=== PATIENT | male | born 1980 | race African-American/Black ===

== ENCOUNTER 2017-10-24 16:04 | Inpatient (IN) | payer OTHER ==
[2017-10-24 17:18] LABS: #Eosinphils 0.3 thou/uL (0.0-0.7); #Lymphocytes 1.3 thou/uL (1.20-3.40); #Monocytes 0.4 thou/uL (0.11-0.59); #Neutrophils 2.8 thou/uL (1.40-6.50); %Basophils 0.6 % (0.0-1.0); %Eosinophils 6.6 % (0.0-10.0); %Lymphocytes 26.7 % (21.0-51.0); %Monocytes 7.6 % (0.0-10.0); %Neutrophils 58.5 % (42.0-75.0); Hemoglobin 14.2 g/dL (14.0-18.0); Mean Corpuscular HGB CONC 34.1 g/dL (32.0-36.0); Mean Corpuscular Hemoglobin 34.7 pg (27.0-31.0); Mean Platelet Volume 8.8 fL (7.4-10.4); Platelet Count 223 thou/uL (130-400); RBC Distribution Width 10.5 % (11.5-14.5); Red Blood Cell (RBC) Count 4.11 mill/uL (4.70-6.10); White Blood Cell (WBC) Count 4.9 thou/uL (4.8-10.8)
[2017-10-24 17:35] LABS: ALT (SGPT) 14 U/L (8-55); AST (SGOT) 17 U/L (5-34); Albumin 4.2 g/dL (3.5-5.0); Alkaline Phosphatase 95 U/L (40-150); Anion Gap 13 mmol/L (10-20); BUN (Urea Nitrogen) 11 mg/dL (8.9-20.6); Bilirubin, Total 0.6 mg/dL (0.2-1.2); Calc. Creatinine Clearance 0 mL/min (70-130); Calcium 9.4 mg/dL (7.8-10.44); Carbon Dioxide 33 mmol/L (22-29); Chloride 101 mmol/L (98-107); Estimated GFR-MDRD Greater than 90; Globulin 4.2 g/dL (2.4-3.5); Glucose 91 mg/dL (70-105); Potassium 3.6 mmol/L (3.5-5.1); Protein, Total 8.4 g/dL (6.0-8.3); Sodium 143 mmol/L (136-145)
[2017-10-24 19:27] LABS: Bilirubin Negative (Negative); Blood, Urine Moderate (Negative); Clarity TURBID (Clear); Glucose, Urine (Dipstick) Negative (Negative); Leukocyte Large (Negative); Nitrite Positive (Negative); Protein, Urine (Dipstick) 100 mg/dL (Neg-Trace); Specific Gravity, Urine 1.016 (1.002-1.036)
[2017-10-24 19:29] LABS: Bacteria/HPF 4+ HPF (None Seen); Squamous Epithelial 0-3 HPF (0-3)
[2017-10-24 19:30] LABS: Pathc Cast-AUWi Flag 3.51 (0-2.49); Yeast-AUWi Flag 145.1 (0-25.0)
[2017-10-24 19:40] LABS: Hyaline Casts/LPF NONE SEEN LPF (0-3 Hyaline); Other Casts/LPF None Seen LPF (0-3 Hyaline); Yeast-All Forms None Seen HPF (None Seen)
[2017-10-24] MEDS ORDERED: Ondansetron HCl/PF 4 MG/2 ML Vial IVP PRN (21:19)
[2017-10-24] MEDS ORDERED: Ondansetron ODT 4 MG TAB SL PRN (21:19)
[2017-10-24] MEDS ORDERED: Sodium Chloride 0.9% 1,000 ML IV SCH (21:19)
[2017-10-24] MEDS ORDERED: Acetaminophen 325 MG TAB PO PRN (23:41)
[2017-10-25] MEDS: Sodium Chloride 0.9% 1,000 ML IV SCH ×3 (00:23→20:47)
[2017-10-25 04:49] LABS: #Basophils 0.1 thou/uL (0.0-0.2); #Eosinphils 0.3 thou/uL (0.0-0.7); #Lymphocytes 1.4 thou/uL (1.20-3.40); #Monocytes 0.5 thou/uL (0.11-0.59); #Neutrophils 2.1 thou/uL (1.40-6.50); %Basophils 1.6 % (0.0-1.0); %Eosinophils 7.8 % (0.0-10.0); %Lymphocytes 31.2 % (21.0-51.0); %Monocytes 11.6 % (0.0-10.0); %Neutrophils 47.8 % (42.0-75.0); Hemoglobin 11.6 g/dL (14.0-18.0); Mean Corpuscular HGB CONC 33.8 g/dL (32.0-36.0); Mean Corpuscular Hemoglobin 34.3 pg (27.0-31.0); Mean Platelet Volume 9.1 fL (7.4-10.4); Platelet Count 171 thou/uL (130-400); RBC Distribution Width 10.4 % (11.5-14.5); White Blood Cell (WBC) Count 4.4 thou/uL (4.8-10.8)
[2017-10-25 04:57] LABS: Anion Gap 7 mmol/L (10-20); BUN (Urea Nitrogen) 8 mg/dL (8.9-20.6); Calc. Creatinine Clearance 70 mL/min (70-130); Carbon Dioxide 31 mmol/L (22-29); Chloride 108 mmol/L (98-107); Estimated GFR-MDRD Greater than 90; Glucose 76 mg/dL (70-105); Potassium 3.7 mmol/L (3.5-5.1); Sodium 142 mmol/L (136-145)
--- NOTE | 2017-10-25 05:15 | HP-2 ---
DATE OF ADMISSION: 10/24/2017 CODE STATUS: FULL. PRIMARY CARE PHYSICIAN: Dr. Oconnell. ATTENDING: Dr. Lula Hills. RESIDENT: Dr. Rae. CHIEF COMPLAINT: Dysuria. HISTORY OF PRESENT ILLNESS: This is a 37-year-old male with past medical history of spina bifida, ne urogenic bladder, self-catheterization, then frequent UTIs, who presents with abdominal pain, back pa in, and fevers. The patient reports that on Friday his symptoms started with abdominal pain and back pain. He went to see his PCP and he added on Bactrim to his usual Cipro regimen for that he takes f or chronic UTI suppression. The patient reports that his symptoms have continued to get worse and th at he developed a fever to 103 yesterday and then also developed nausea and vomiting this morning. I n the ER, he was given Rocephin 1 gram. PAST MEDICAL HISTORY: 1. Spina bifida. 2. Neurogenic bladder. 3. Hypertension. 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 ALLERGIES: NITROFURANTOIN. MEDICATIONS: 1. Amitiza 24 mcg b.i.d. 2. Carvedilol 25 mg b.i.d. 3. Bactrim started on Friday 800-160 mg b.i.d. 4. Cipro 500 mg b.i.d. 5. Amlodipine 10 mg daily. FAMILY HISTORY: Mom has hypertension. SOCIAL HISTORY: Denies tobacco, alcohol, or drug use. REVIEW OF SYSTEMS: General: Positive for fever and chills. Eyes: Negative for vision changes or e ye pain. ENT: Negative for nasal congestion, rhinorrhea, sore throat. Respiratory: Negative for c ough, shortness of breath. Cardiovascular: Negative for chest pain, palpitations, edema. Gastroint estinal: Positive for nausea, vomiting, abdominal pain, suprapubic pain, and flank pain. Skin: Neg ative for rash or lesions. Genitourinary: Patient has cannot feel any dysuria and self caths. Musc uloskeletal: Positive for back pain or tenderness. Neurologic: Positive for chronic weakness and n umbness in the lower extremities. PHYSICAL EXAMINATION: VITAL SIGNS: Blood pressure 131/90, pulse 86, respiratory rate 20, temperature 98.7, pulse ox 96% on room air, current weight 31.6 kilograms. GENERAL: Alert, oriented x3, no acute distress. Thin, appropriately interactive. EYES: Extraocular muscles intact. Conjunctivae within normal limits. ENT: Nasal mucosa and oropharynx within normal limits. NECK: Supple, no lymphadenopathy. CARDIAC: Regular rate and rhythm. No murmurs, gallops. 2+ radial and pedal pulses. RESPIRATORY: Normal effort, no retraction. Chest is clear to auscultation bilaterally. SKIN: Warm, dry. No cyanosis or lesions. ABDOMEN: Soft, diffusely tender to palpation with voluntary guarding. No true CVA tenderness. He h as some mild back tenderness on the left flank. Normoactive bowel sounds. No mass or distention. EXTREMITIES: No cyanosis or edema. Significant lower extremity deformity. MUSCULOSKELETAL: Decreased muscle tone and musculoskeletal deformity in lower extremity. No muscle strength in lower extremity and decreased sensation in lower extremity. Normal sensation in the uppe r extremities. PSYCHIATRIC: Appropriate. LABORATORY DATA: WBC 4.9, hemoglobin 14.2, hematocrit 41.7, platelets 223. Sodium 143, potassium 3. 6, chloride 101, CO2 of 33, BUN 11, creatinine 0.73, glucose 91, calcium 9.4. AST 17, ALT 14, alkali ne phosphatase 95, total bilirubin 0.6, lactic acid 2.8, repeat lactic acid 1.0. Urinalysis showed m oderate blood, 100 protein, large leukocyte esterase, positive nitrites, 11-20 rbc's, greater than 50 wbc's, 4+ bacteria. ASSESSMENT AND PLAN: This is a 37-year-old male who presents with: 1. Complicated urinary tract infection, failed outpatient treatment. Outpatient urine culture that showed Escherichia coli sensitive to BACTRIM and ROCEPHIN, but resistant to Cipro. There is no signi ficant costovertebral angle tenderness. The patient does have fevers at home and continued abdominal pain. The patient straight caths himself 2-3 times a day. We will treat with Rocephin, normal sali ne at 100. We will monitor for signs and symptoms of sepsis or pyelo. We will check urine culture, b lood culture, and patient's chronic suppression will likely need to be changed as his last urinary tr act infections have been Escherichia coli resistant to Cipro. 2. Neurogenic bladder with frequent catheterization likely the cause of frequent infections. We ariana preciado p.r.n. in the hospital. 3. Spina bifida is likely causing neurogenic bladder. 4. Hypertension. Continue home medications. 5. Deep venous thrombosis prophylaxis. Lovenox. DISPOSITION: Admit to medical. Symptomatic medication will be provided. History and physical exam as well as management discussed with Dr. Hills.
--- NOTE | 2017-10-25 06:36 | PDOC.FM ---
- Subjective Subjective: Patient states he had a good night. He states most of his pain is in his low back area. He states he denies fevers or chills. He denies any pain with his catheterizations. He denies n/v/d, coughs, or lightheadedness. He states this all started about a week ago and the antibiotics didn't work. He had no other concerns this morning. - Objective Vital Signs & Weight: Vital Signs (12 hours) Temp Pulse Resp BP Pulse Ox 10/25/17 04:32 98.4 F 82 18 126/77 99 10/25/17 00:00 98.4 F 86 19 115/69 97 10/24/17 22:34 98.4 F 81 18 98 10/24/17 21:05 98.4 F 81 18 146/89 H 98 I&O: 10/23/17 10/24/17 10/25/17 06:59 06:59 06:59 Intake Total 1450 Balance 1450 Result Diagrams: 10/25/17 03:14 10/25/17 03:14 <Faizan Mcnulty - Last Filed: 10/25/17 07:27> - Objective Vital Signs & Weight: Vital Signs (12 hours) Temp Pulse Resp BP Pulse Ox 10/25/17 10:55 98.6 F 91 12 125/78 96 10/25/17 08:51 91 10/25/17 08:20 98.4 F 91 12 96 10/25/17 07:12 98.4 F 86 12 142/90 H 96 10/25/17 04:32 98.4 F 82 18 126/77 99 Weight Admit Weight 31.6 kg Weight 31.6 kg I&O: 10/24/17 10/25/17 10/26/17 06:59 06:59 06:59 Intake Total 1450 120 Balance 1450 120 Result Diagrams: 10/25/17 03:14 10/25/17 03:14 <Lula Hills - Last Filed: 10/25/17 14:00> Phys Exam - Physical Examination Constitutional: NAD HEENT: PERRLA, moist MMs Neck: no nodes Respiratory: no wheezing, clear to auscultation bilateral Cardiovascular: RRR, no significant murmur Gastrointestinal: soft, no distention, positive bowel sounds tenderness over suprapubic region significant deformity to lower extremity Neurological: non-focal Lymphatic: no nodes Psychiatric: normal affect, A&O x 3 Skin: no rash <Faizan Mcnulty - Last Filed: 10/25/17 07:27> Dx/Plan (1) Complicated UTI (urinary tract infection) Code(s): N39.0 - URINARY TRACT INFECTION, SITE NOT SPECIFIED Status: Acute (2) Spina bifida Code(s): Q05.9 - SPINA BIFIDA, UNSPECIFIED Status: Acute (3) Neurogenic bladder Code(s): N31.9 - NEUROMUSCULAR DYSFUNCTION OF BLADDER, UNSPECIFIED Status: Acute (4) HTN (hypertension) Code(s): I10 - ESSENTIAL (PRIMARY) HYPERTENSION Status: Acute - Plan Plan: 1. Complicated UTI - Failed outpatient treatment with Cipro - Continue Rocephin - Monitor for sepsis - Cultures pending 2. Spina bifida - long standing - likely cause of neurogenic bladder 3. Neurogenic bladder - Continue intermittent straight caths as needed - Likely cause of infection 4. HTN - Continue home meds Disposition: Stable, Continue current plan of care. <Faizan Mcnulty - Last Filed: 10/25/17 07:27> Attending Addendum - Attending Addendum I personally evaluated the patient and discussed the management with Dr. Mcnulty. I agree with the History, Examination, Assessment and Plan documented above with any addition or exceptions noted below. The patient is feeling better this morning. Will continue Rocephin. Urine culture pending. Pt will likely need his prophylactic antibiotic changed because past two uti's have been resistant to cipro. <Lula Hills - Last Filed: 10/25/17 14:00>
[2017-10-25] MEDS: Lubiprostone 24 MCG CAP PO SCH ×2 (08:51→18:21)
[2017-10-25] MEDS: Carvedilol 25 MG TAB PO SCH ×2 (08:51→18:21)
[2017-10-25] MEDS: Amlodipine 10 MG TAB PO SCH (08:51)
[2017-10-25] MEDS: Enoxaparin Sodium 40 MG/0.4 ML SYRINGE SC SCH (08:51)
[2017-10-25] MEDS ORDERED: cefTRIAXone\\ROCEPHIN 1 GM in Syringe 10 ML SLOW IVP SCH (20:00)
[2017-10-25] MEDS ORDERED: Carvedilol 25 MG TAB PO SCH (21:00)
--- NOTE | 2017-10-26 00:35 | HP ---
DATE OF SERVICE: 10/25/2017 CHIEF COMPLAINT: Dysuria. HISTORY OF PRESENT ILLNESS: The patient is a 37-year-old male with past medical history of spina bif yassine, neurogenic bladder, who self-catheterizes and frequent urinary tract infections, who presented w ith abdominal pain, back pain, and fevers. The patient had seen his PCP and was started on Bactrim i n addition to his normal Cipro that he takes for antibiotic prophylaxis. The patient endorses a feve r up to 103 and also noted some nausea and vomiting as well as lower back pain. In the ER, he was gi cydney 1 gram of Rocephin and admitted to a medical bed. This morning, the patient is feeling a little bit better, but he still notes some lower back pain. He has no CVA tenderness on the exam, but he di d have suprapubic tenderness this morning. PERTINENT LABORATORY: Shows a CBC with white blood cell count 4.4, hemoglobin 11.6, hematocrit 34.5, platelet count 171. Urinalysis showing protein 100, blood moderate, nitrate positive, leukocyte est erase large, urobilinogen 4.0, red blood cells 11-20, white blood cells greater than 50, bacteria 4+. ASSESSMENT AND PLAN: 1. Complicated urinary tract infection which failed outpatient treatment. The patient will continue on Rocephin. Urine cultures have been sent. The patient chronically takes Cipro for prophylaxis; bong faust, based on the clinic records, his previous 2 urinary tract infections were resistant to Cipro, so it is likely that his prophylaxis needed to change. 2. Neurogenic bladder: Patient will continue to catheterization intermittently. 3. Spina bifida. 4. Hypertension. 5. Please see Dr. Keila Rae's dictation for full history and physical, assessment and plan on this patient. I repeat the pertinent portions of the history and physical and agree with her documentati on. We have discussed this case in detail.
[2017-10-26] MEDS: Sodium Chloride 0.9% 1,000 ML IV SCH (03:19)
[2017-10-26 04:19] LABS: #Eosinphils 0.3 thou/uL (0.0-0.7); #Lymphocytes 1.5 thou/uL (1.20-3.40); #Monocytes 0.5 thou/uL (0.11-0.59); #Neutrophils 2.3 thou/uL (1.40-6.50); %Basophils 0.9 % (0.0-1.0); %Eosinophils 7.3 % (0.0-10.0); %Lymphocytes 30.9 % (21.0-51.0); %Monocytes 11.2 % (0.0-10.0); %Neutrophils 49.7 % (42.0-75.0); Hemoglobin 12.7 g/dL (14.0-18.0); Mean Corpuscular HGB CONC 34.2 g/dL (32.0-36.0); Mean Corpuscular Hemoglobin 34.2 pg (27.0-31.0); Mean Platelet Volume 8.8 fL (7.4-10.4); Platelet Count 195 thou/uL (130-400); RBC Distribution Width 10.4 % (11.5-14.5); Red Blood Cell (RBC) Count 3.72 mill/uL (4.70-6.10); White Blood Cell (WBC) Count 4.7 thou/uL (4.8-10.8)
[2017-10-26 04:31] LABS: Anion Gap 11 mmol/L (10-20); BUN (Urea Nitrogen) 6 mg/dL (8.9-20.6); Calc. Creatinine Clearance 70 mL/min (70-130); Calcium 8.5 mg/dL (7.8-10.44); Carbon Dioxide 29 mmol/L (22-29); Chloride 103 mmol/L (98-107); Estimated GFR-MDRD Greater than 90; Glucose 61 mg/dL (70-105); Potassium 3.6 mmol/L (3.5-5.1); Sodium 139 mmol/L (136-145)
--- NOTE | 2017-10-26 06:49 | PDOC.FM ---
- Subjective Subjective: Patient states he had a good night. He states the back pain and suprapubic pain has resolved. He states that he has had no chest pain, sob, n/v/d, fevers, or chills. He has no other concerns this morning. - Objective Vital Signs & Weight: Vital Signs (12 hours) Temp Pulse Resp BP Pulse Ox 10/26/17 04:38 98.4 F 83 16 102/66 92 L 10/25/17 23:28 98.4 F 85 18 124/77 99 10/25/17 20:01 98.3 F 84 16 96 10/25/17 20:00 98.3 F 84 16 137/80 98 Weight Admit Weight 31.6 kg Weight 31.6 kg I&O: 10/24/17 10/25/17 10/26/17 06:59 06:59 06:59 Intake Total 1450 3850 Balance 1450 3850 Result Diagrams: 10/26/17 03:30 10/26/17 03:30 <Faizan Mcnulty - Last Filed: 10/26/17 07:36> - Objective Vital Signs & Weight: Vital Signs (12 hours) Temp Pulse Resp BP BP Pulse Ox 10/26/17 12:35 98.1 F 83 16 145/84 H 99 10/26/17 08:29 98.3 F 84 16 137/81 98 10/26/17 08:10 98.3 F 84 16 98 10/26/17 08:07 82 137/81 10/26/17 04:38 98.4 F 83 16 102/66 92 L Weight Admit Weight 31.6 kg Weight 31.6 kg I&O: 10/25/17 10/26/17 10/27/17 06:59 06:59 06:59 Intake Total 1450 3850 Balance 1450 3850 Result Diagrams: 10/26/17 03:30 10/26/17 03:30 <Lula Hills - Last Filed: 10/26/17 14:03> Phys Exam - Physical Examination Constitutional: NAD HEENT: PERRLA Neck: no nodes Respiratory: no wheezing, clear to auscultation bilateral Cardiovascular: RRR, no significant murmur Gastrointestinal: soft, non-tender, no distention, positive bowel sounds significant lower extremity deformity Neurological: non-focal Lymphatic: no nodes Psychiatric: normal affect, A&O x 3 Skin: no rash <Faizan Mcnulty - Last Filed: 10/26/17 07:36> Dx/Plan (1) Complicated UTI (urinary tract infection) Code(s): N39.0 - URINARY TRACT INFECTION, SITE NOT SPECIFIED Status: Acute (2) Spina bifida Code(s): Q05.9 - SPINA BIFIDA, UNSPECIFIED Status: Acute (3) Neurogenic bladder Code(s): N31.9 - NEUROMUSCULAR DYSFUNCTION OF BLADDER, UNSPECIFIED Status: Acute (4) HTN (hypertension) Code(s): I10 - ESSENTIAL (PRIMARY) HYPERTENSION Status: Acute - Plan Plan: 1. Complicated UTI - Failed outpatient treatment with Cipro - Continue Rocephin - Monitor for sepsis - Cultures pending - Will change suppression medication to Bactrim per sensitivities 2. Spina bifida - long standing - likely cause of neurogenic bladder 3. Neurogenic bladder - Continue intermittent straight caths as needed - Likely cause of infection 4. HTN - Continue home meds Disposition: Stable, Continue current plan of care and await cultures. <Faizan Mcnulty - Last Filed: 10/26/17 07:36> Attending Addendum - Attending Addendum I personally evaluated the patient and discussed the management with Dr. Mcnulty. I agree with the History, Examination, Assessment and Plan documented above with any addition or exceptions noted below. The patient is feeling much better. BAck an suprapubic pain have resolved. Will transition to po bactrim and d/c home. <Lula Hills - Last Filed: 10/26/17 14:03>
[2017-10-26] MEDS: Enoxaparin Sodium 40 MG/0.4 ML SYRINGE SC SCH (08:06)
[2017-10-26] MEDS: Carvedilol 25 MG TAB PO SCH (08:07)
[2017-10-26] MEDS: Amlodipine 10 MG TAB PO SCH (08:07)
[2017-10-26] MEDS: Lubiprostone 24 MCG CAP PO SCH (08:07)
[2017-10-26 12:36] VITALS: BP 145/84; TEMP 98.1
--- NOTE | 2017-10-27 13:24 | DIS-2 ---
DATE OF ADMISSION: 10/24/2017 DATE OF DISCHARGE: 10/26/2017 RESIDENT: Dr. Faizan Mcnulty ADMITTING ATTENDING: Dr. Lula Hills. DISCHARGE ATTENDING: Dr. Lula Hills CONSULTATIONS: None. PROCEDURES: None. PRIMARY DIAGNOSES: 1. Complicated urinary tract infection. 2. Spina bifida. 3. Neurogenic bladder. 4. Hypertension. DISCHARGE MEDICATIONS: 1. Amitiza 24 mcg b.i.d. with meals. 2. Amlodipine 10 mg p.o. daily. 3. Carvedilol 25 mg p.o. at bedtime. 4. Bactrim double strength 1 tab b.i.d. for 5 days. 5. Bactrim single strength 1 tab daily for 30 days. DISCONTINUED MEDICATIONS: Ciprofloxacin 500 mg. HISTORY OF PRESENT ILLNESS AND HOSPITAL COURSE: This is a 37-year-old male with past medical history of spina bifida, neurogenic bladder, self catheterization and frequent UTIs who presents with abdomi nal pain, back pain, fevers. The patient reports that on Friday symptoms started with abdominal pain and back pain. He went to see his PCP and he added Bactrim to his usual Cipro regimen for what he t akes for chronic urinary tract infection suppression. The patient reports that his symptoms have con tinued to get worse and he developed a fever to 103 yesterday and then he also developed nausea and v omiting this morning. In the ER, he was given Rocephin 1 gram. During this hospitalization, the patient had some notable lab values, he had a white blood cell count that ranged from 4.9 to 4.4, hemoglobin that ranged from 14.2 to 11.6. A urinalysis that showed 100 urine protein, moderate amount of urine blood, positive urine nitrites, large amount of leukocyte es terase, 11-20 urine RBCs, greater than 50, too numerous to count white blood cells and 4+ urine bacte joseph. The patient also had a urine culture that was drawn that showed E. coli positive. Sensitivitie s were drawn to that and showed that the organism was resistant to ciprofloxacin and that Bactrim as well as Rocephin was sensitive. The patient otherwise had negative blood cultures. The patient did complain of initially some continued back pain and suprapubic pain that resolved and improved during his hospitalization. The patient was afebrile during his hospitalization with normotensive blood pre ssures and other vital signs within normal limits. The abdominal pain and back pain improved on seco day of hospitalization and at that time it was decided that his chronic urinary tract infection caban ppression therapy need to be changed to Bactrim with close follow up with his PCP. Otherwise, the mirtha ellsworth had no other complications during this hospitalization and was discharged in appropriate condit ion. DISCHARGE INSTRUCTIONS: 1. Location: He will be discharged home into his own care. 2. Diet: Diet will be heart healthy diet with no restrictions. 3. Activity: Activity will be activity as tolerated. No restrictions. 4. Followup: Follow up will be with his primary care physician AT [facility] in 3 days to ensure that he is able to tolerate his new chronic urinary tract infection suppression going forward . I wish this alyce the best of luck and hope he has no further complications from this condition.
== END 2017-10-26 15:01 | disposition home or self-care (01) | DRG 699 ==
LOC: ERS 16:04 → SURG A 20:13
PROVIDERS: ADMIT Family Medicine; ATTEND Family Medicine
DX: T83.518A Infection and inflammatory reaction due to other urinary catheter, initial encounter (principal); N39.0 Urinary tract infection, site not specified; N31.9 Neuromuscular dysfunction of bladder, unspecified; Q05.9 Spina bifida, unspecified; I10 Essential (primary) hypertension; Y73.1 Therapeutic (nonsurgical) and rehabilitative gastroenterology and urology devices associated with adverse incidents; B96.20 Unspecified Escherichia coli [E. coli] as the cause of diseases classified elsewhere; K59.00 Constipation, unspecified
CPT/HCPCS: 36415; 51701; 80048; 80053; 81003; 81015; 83605; 85025; 87040; 87077; 87086; 87186; 96361; 96374; A4216; J0696; J1650

== ENCOUNTER 2018-03-10 07:07 | Day surgery (SDC) | payer OTHER ==
[2018-03-09 12:09] VITALS: BMI 19.5
--- NOTE | 2018-03-10 10:09 | OP ---
DATE OF PROCEDURE: 03/10/2018 SURGEON: Jorge Marin M.D. PROCEDURE: Aborted colonoscopy. PREOPERATIVE DIAGNOSES: History of transverse colon polyp removed in 2010. This polyp was incomplet shanthi retrieved; however, the pathology of the tissue that was retrieved suggested hyperplastic polyp. Followup colonoscopy was attempted today. OPERATIVE NOTE: Informed consent was obtained from the patient. He was sedated with total intraveno us anesthesia. Rectal exam was performed that was normal. The colonoscope was advanced to the dista l sigmoid. There was a large amount of solid stool in the distal colon. The procedure was aborted. IMPRESSION: Large amount of solid stool in the distal colon, procedure aborted. RECOMMENDATIONS: Follow up in GI Clinic.
[2018-03-10] MEDS ORDERED: Lidocaine 1% PF 5 ML VIAL ONE (13:18)
[2018-03-10] MEDS ORDERED: PROPOFOL 200 MG/20 ML VIAL ONE (13:18)
== END 2018-03-10 10:30 | disposition home or self-care (01) ==
LOC: SDC 07:07
PROVIDERS: ATTEND Internal Medicine Gastroenterology
PROC: 0DJD8ZZ Inspection of Lower Intestinal Tract, Via Natural or Artificial Opening Endoscopic (ICD-10-PCS; principal; 2018-03-10)
DX: K59.01 Slow transit constipation (principal); I10 Essential (primary) hypertension; Z86.010 Personal history of colon polyps; Z79.899 Other long term (current) drug therapy; Z88.8 Allergy status to other drugs, medicaments and biological substances
CPT/HCPCS: J2001; J2704

== ENCOUNTER 2018-03-23 12:39 | Outpatient (CLI) | payer OTHER ==
--- NOTE | 2018-03-23 15:04 | ULT ---
RENAL ARTERIAL DOPPLER ULTRASOUND: DATE: 03/23/18. COMPARISON: None. HISTORY: A 27-year-old male with high blood pressure, evaluate for renal artery stenosis. TECHNIQUE: Multiplanar, [place] scale, sonographic imaging of the kidneys and urinary bladder obtained. Renal vasc ulature is assessed with color flow and spectral analysis. FINDINGS: Secondary to patient body habitus, evaluation of the arterial structures of both kidneys is limited t echnically. The right kidney measures approximately 7.0 x 3.2 x 3.8 cm, abnormally small. Arcuate r enal artery resistive index on the right is estimated at 0.9-1.0, elevated. Imaging of right renal v ein demonstrates patency. Provided imaging of the right renal artery demonstrates a peak systolic ve locity of approximately 48 cm/s. Abdominal aorta in this region demonstrates a peak systolic velocit y of approximately 3 cm/s. Left kidney is vaguely visualized measuring in the 7.1 x 5.7 x 4.1 cm ran ge. Resistive indices of the left kidney measure between 0.6 and 0.8. Left renal vein appears paten t. Left renal artery demonstrates peak systolic velocity measuring up to 33 cm/s. The urinary bladder appears grossly unremarkable. No discrete renal mass, hydronephrosis, or stone. Renal artery to aortic ratio is 1.1 on the right and 0.8 on the left. This does not suggest renal a rtery stenosis, although portions of the renal arteries are incompletely visualized. IMPRESSION: Limited examination demonstrating no obvious evidence for renal artery stenosis. Of note, both kidne ys are difficult to visualize and are small. This may signify renal medical disease. POS: HOLDEN
== END 2018-03-23 12:40 | disposition home or self-care (01) ==
LOC: ULT 12:39
PROVIDERS: ATTEND Family Medicine
DX: I10 Essential (primary) hypertension (principal)
CPT/HCPCS: 76700; 76770

== ENCOUNTER 2019-02-12 10:56 | Emergency (ER) | payer OTHER ==
[2019-02-12 11:32] LABS: #Basophils 0.1 thou/uL (0.0-0.2); #Eosinphils 0.4 thou/uL (0.0-0.7); #Lymphocytes 1.2 thou/uL (1.20-3.40); #Monocytes 0.4 thou/uL (0.11-0.59); #Neutrophils 2.7 thou/uL (1.40-6.50); %Basophils 1.6 % (0.0-1.0); %Eosinophils 8.3 % (0.0-10.0); %Lymphocytes 24.3 % (21.0-51.0); %Monocytes 9.2 % (0.0-10.0); %Neutrophils 56.7 % (42.0-75.0); Hemoglobin 13.8 g/dL (14.0-18.0); Mean Corpuscular HGB CONC 33.7 g/dL (32.0-36.0); Mean Corpuscular Hemoglobin 33.3 pg (27.0-31.0); Mean Corpuscular Volume 98.8 fL (78.0-98.0); Mean Platelet Volume 8.6 fL (7.4-10.4); Platelet Count 187 thou/uL (130-400); RBC Distribution Width 10.5 % (11.5-14.5); Red Blood Cell (RBC) Count 4.16 mill/uL (4.70-6.10); White Blood Cell (WBC) Count 4.7 thou/uL (4.8-10.8)
--- NOTE | 2019-02-12 11:32 | RAD ---
XR Chest 1 View Portable HISTORY: Hypertension COMPARISON: 06/04/2017 FINDINGS: The heart size is normal. The lungs are well expanded without focal areas of consolidation, pneumothorax or pleural effusions. Marked deformity of the spine and rib cage is again seen. IMPRESSION: No radiographic evidence of acute cardiopulmonary process.
--- NOTE | 2019-02-12 11:49 | CT ---
CT BRAIN WITHOUT CONTRAST HISTORY: headache, hypertension, vision changes. COMPARISON: 07/17/2016 FINDINGS: The right-sided posterior ventriculostomy catheter is again seen with decompression of the right late ral ventricle. The ventricular sizes are stable. No evidence of acute infarct, hemorrhage, midline shift or abnormal extra-axial fluid collections is seen. The bony calvarium is intact. There is mucos al disease in the paranasal sinuses. IMPRESSION:: No CT evidence of acute intracranial process
[2019-02-12 11:53] LABS: ALT (SGPT) 9 U/L (8-55); AST (SGOT) 14 U/L (5-34); Albumin 4.1 g/dL (3.5-5.0); Alkaline Phosphatase 83 U/L (40-150); Anion Gap 11 mmol/L (10-20); BUN (Urea Nitrogen) 12 mg/dL (8.9-20.6); Bilirubin, Total 0.6 mg/dL (0.2-1.2); Calc. Creatinine Clearance 0 mL/min (70-130); Calcium 9.4 mg/dL (7.8-10.44); Carbon Dioxide 34 mmol/L (22-29); Chloride 102 mmol/L (98-107); Estimated GFR-MDRD Greater than 90; Globulin 3.5 g/dL (2.4-3.5); Glucose 82 mg/dL (70-105); Potassium 3.6 mmol/L (3.5-5.1); Protein, Total 7.6 g/dL (6.0-8.3); Sodium 143 mmol/L (136-145)
[2019-02-12 12:38] LABS: Bilirubin Negative (Negative); Blood, Urine Small (Negative); Clarity CLEAR (Clear); Glucose, Urine (Dipstick) Negative (Negative); Leukocyte Large (Negative); Nitrite Negative (Negative); Protein, Urine (Dipstick) Trace mg/dL (Neg-Trace); Specific Gravity, Urine 1.012 (1.002-1.036); pH, Urine 7.5 (5.0-9.0)
[2019-02-12 12:41] LABS: Bacteria/HPF 1+ HPF (None Seen); Pathc Cast-AUWi Flag 1.63 (0-2.49); Squamous Epithelial None Seen HPF (0-3)
[2019-02-12 12:54] LABS: Hyaline Casts/LPF 0-3 HYALINE CAST LPF (0-3 Hyaline)
[2019-02-12 12:56] LABS: Crystals/HPF 1+ AMORPH PHOS HPF (Negative)
[2019-02-12] MEDS ORDERED: Ketorolac Tromethamine 30 MG/ML VIAL ONE (13:08)
[2019-02-12] MEDS ORDERED: Acetaminophen/Codeine 30-300mg Tablet ONE (13:08)
--- NOTE | 2019-02-13 14:37 | EKG ---
Test Reason : ER INDICATION Blood Pressure : / mmHG Vent. Rate : 082 BPM Atrial Rate : 082 BPM P-R Int : 118 ms QRS Dur : 068 ms QT Int : 352 ms P-R-T Axes : 051 028 016 degrees QTc Int : 411 ms Normal sinus rhythm Possible Left atrial enlargement Nonspecific T wave abnormality Abnormal ECG Confirmed by FALGUNI VILLALPANDO D.O. ([id number]), subeditor GERONIMO DE LA PAZ ([id number]) on 02/13/2019 2:37:04 PM Referred By: GABBY Confirmed By:FALGUNI VILLALPANDO D.O.
== END 2019-02-12 13:34 | disposition home or self-care (01) ==
LOC: ERS 10:56
DX: R51 Headache (principal); I10 Essential (primary) hypertension; Z79.899 Other long term (current) drug therapy
CPT/HCPCS: 36415; 51701; 70450; 71045; 80053; 81003; 81015; 84484; 85025; 87077; 87086; 87186; 93005; 94760; 96372; J1885

== ENCOUNTER 2019-04-21 10:00 | Outpatient (CLI) | payer OTHER ==
--- NOTE | 2019-04-21 11:47 | ULT ---
CLINICAL HISTORY: Hypertension. STUDY: Renal ultrasound and renal artery ultrasound COMPARISON: None. TECHNIQUE: Multiplanar grayscale and color Doppler images were obtained in a renal ultrasound. Spectr al analysis of the Doppler waveforms of the aorta and renal arteries were performed. FINDINGS: This exam is limited secondary to the patient's body habitus. Right kidney: Echogenicity: Normal. Masses/cysts: None. Hydronephrosis: None. Calcifications: None. Length: 7.0 cm Left kidney: Cannot be visualized secondary to bowel gas. Limited visualization of the urinary bladder is unremarkable. Peak systolic velocity in the aorta: 65 cm/s Peak systolic velocity in the right renal artery: 75 cm/s. Right renal artery to aortic ratio: 0.6 The left renal artery cannot be seen. IMPRESSION: 1. Unremarkable renal ultrasound 2. No evidence of right renal artery stenosis
== END 2019-04-21 10:01 | disposition home or self-care (01) ==
LOC: BICULT 10:00
PROVIDERS: ATTEND Family Medicine
DX: I10 Essential (primary) hypertension (principal)
CPT/HCPCS: 76700; 76770

== ENCOUNTER 2019-12-08 11:04 | Outpatient (CLI) | payer OTHER | END 2019-12-08 11:05 | disposition home or self-care (01) | LOC: CTENTCT 11:04 | PROVIDERS: ATTEND Specialist | DX: J33.0 Polyp of nasal cavity (principal) | CPT/HCPCS: 70486 ==

== ENCOUNTER 2020-02-04 18:03 | Outpatient (CLI) | payer OTHER ==
[2020-02-05 17:10] LABS: SARS-CoV-2 MS2 Positive; SARS-CoV-2 N Gene Negative; SARS-CoV-2 S Gene Negative; SARS-CoV-2 orf1ab Negative
== END 2020-02-04 18:04 | disposition home or self-care (01) ==
LOC: ER/OP 18:03
PROVIDERS: ATTEND Specialist
DX: Z01.818 Encounter for other preprocedural examination (principal); Z11.59 Encounter for screening for other viral diseases
CPT/HCPCS: 87635; U0003

== ENCOUNTER 2020-08-10 12:39 | Outpatient (CLI) | payer OTHER | END 2020-08-10 12:40 | disposition home or self-care (01) | LOC: ULT 12:39 | PROVIDERS: ATTEND Family Medicine | DX: I10 Essential (primary) hypertension (principal); I08.1 Rheumatic disorders of both mitral and tricuspid valves | CPT/HCPCS: 93306 ==

== ENCOUNTER 2021-01-05 18:27 | Inpatient (IN) | payer OTHER ==
[~2021-01-05 18:27] MED LIST: Iopamidol-370 76% 500 ML 1 ML ONE
[2021-01-05 19:49] LABS: Hemoglobin 11.6 g/dL (14.0-18.0); Mean Corpuscular HGB CONC 33.9 g/dL (32.0-36.0); Mean Corpuscular Hemoglobin 32.7 pg (27.0-31.0); Mean Corpuscular Volume 96.5 fL (78.0-98.0); Mean Platelet Volume 7.4 fL (7.4-10.4); Platelet Count 393 thou/uL (130-400); RBC Distribution Width 11.1 % (11.5-14.5); Red Blood Cell (RBC) Count 3.55 mill/uL (4.70-6.10); White Blood Cell (WBC) Count 9.7 thou/uL (4.8-10.8)
[2021-01-05 20:00] LABS: ALT (SGPT) 36 U/L (8-55); AST (SGOT) 34 U/L (5-34); Albumin 3.5 g/dL (3.5-5.0); Alkaline Phosphatase 71 U/L (40-110); Anion Gap 14 mmol/L (10-20); BUN (Urea Nitrogen) 13 mg/dL (8.9-20.6); Bilirubin, Total 0.7 mg/dL (0.2-1.2); Calc. Creatinine Clearance 0 mL/min (70-130); Calcium 8.6 mg/dL (7.8-10.44); Carbon Dioxide 33 mmol/L (22-29); Chloride 96 mmol/L (98-107); Globulin 4.9 g/dL (2.4-3.5); Glucose 108 mg/dL (70-105); Protein, Total 8.4 g/dL (6.0-8.3); Sodium 140 mmol/L (136-145)
[2021-01-05 20:07] LABS: Potassium 2.7 mmol/L (3.5-5.1)
[2021-01-05 20:09] LABS: Anisocytosis SLIGHT = 6-15 cells (100X) (0-5/hpf); Band 3 % (5-11); Lymphocytes 21 % (21-51); MDiff Complete? YES; Monocytes 11 % (0-10); Neutrophil 65 % (42-75); Platelet Morphology Comment Appears Adequate
[2021-01-05] MEDS ORDERED: Ketorolac Tromethamine 30 MG/ML VIAL ONE (20:09)
[2021-01-05 20:14] LABS: Bacteria/HPF 4+ HPF (None Seen); Bilirubin Negative (Negative); Blood, Urine 1+ (Negative); Clarity Extra Turbid (Clear); Glucose, Urine (Dipstick) Normal (Negative); Ketone, Urine Negative (Negative); Leukocyte 500 Leu/uL (Negative); Nitrite Negative (Negative); Protein, Urine (Dipstick) 300 mg/dL (Neg-Trace); RBC/HPF 0-3 HPF (0-3); Specific Gravity, Urine 1.015 (1.002-1.036); Squamous Epithelial 0-3 HPF (0-3); Urobilinogen Normal mg/dL (Less than 2); WBC/HPF Greater than 50 HPF (0-3); pH, Urine 6.5 (5.0-9.0)
[2021-01-05] MEDS ORDERED: Potassium Chloride 20 MEQ TAB ONE (20:15)
[2021-01-05] MEDS ORDERED: cefTRIAXone\\ROCEPHIN 2 GM VIAL ONE (20:58)
[2021-01-06] MEDS ORDERED: hydrALAZINE 20 MG/ML VIAL SLOW IVP PRN (00:29)
[2021-01-06] MEDS ORDERED: Acetaminophen 325 MG TAB PO PRN (00:29)
[2021-01-06] MEDS ORDERED: Ondansetron PF 4 MG/2 ML Vial IVP PRN (00:29)
[2021-01-06] MEDS ORDERED: Ondansetron ODT 4 MG TAB PO PRN (00:29)
[2021-01-06] MEDS ORDERED: Morphine 2 MG/ML VIAL SLOW IVP PRN (00:29)
[2021-01-06] MEDS: Potassium Chloride 10 MEQ in Premix Bag 1 BAG IVPB SCH ×5 (02:13→08:17)
[2021-01-06 02:57] VITALS: BMI 57.6
[2021-01-06 04:54] LABS: #Monocytes 1.2 thou/uL (0.11-0.59); %Basophils 0.3 % (0.0-1.0); %Eosinophils 0.3 % (0.0-10.0); %Lymphocytes 11.1 % (21.0-51.0); %Monocytes 12.9 % (0.0-10.0); %Neutrophils 75.5 % (42.0-75.0); Hemoglobin 9.5 g/dL (14.0-18.0); Mean Corpuscular HGB CONC 32.5 g/dL (32.0-36.0); Mean Corpuscular Hemoglobin 31.7 pg (27.0-31.0); Mean Corpuscular Volume 97.5 fL (78.0-98.0); Mean Platelet Volume 7.9 fL (7.4-10.4); Platelet Count 311 thou/uL (130-400); Red Blood Cell (RBC) Count 2.99 mill/uL (4.70-6.10); White Blood Cell (WBC) Count 9.2 thou/uL (4.8-10.8)
[2021-01-06 05:06] LABS: SARS-CoV-2 PCR by NAA Not Detected (NotDetected)
[2021-01-06 05:11] LABS: Anion Gap 14 mmol/L (10-20); BUN (Urea Nitrogen) 10 mg/dL (8.9-20.6); Calc. Creatinine Clearance 120 mL/min (70-130); Calcium 7.9 mg/dL (7.8-10.44); Carbon Dioxide 24 mmol/L (22-29); Chloride 109 mmol/L (98-107); Glucose 70 mg/dL (70-105); Magnesium 1.6 mg/dL (1.6-2.6); Potassium 3.7 mmol/L (3.5-5.1); Sodium 143 mmol/L (136-145)
[2021-01-06] MEDS: Carvedilol 25 MG TAB PO SCH ×2 (08:17→20:13)
[2021-01-06] MEDS ORDERED: NIFEdipine XL 30 MG TAB PO SCH (09:00)
[2021-01-06] MEDS ORDERED: Hydrochlorothiazide 25 MG TAB PO SCH (09:00)
[2021-01-06] MEDS ORDERED: Lisinopril 20 MG TAB PO SCH (09:00)
[2021-01-06] MEDS ORDERED: Lactated Ringer's 500 ML IVPB SCH (11:15)
[2021-01-06] MEDS: Lubiprostone 24 MCG CAP PO SCH ×2 (11:27→17:13)
[2021-01-06] MEDS ORDERED: cefTRIAXone\\ROCEPHIN 1 GM in Sodium Chloride 0.9% 100 ML IVPB SCH (20:00)
[2021-01-06] MEDS ORDERED: Terazosin HCl 5 MG CAP PO SCH (21:00)
[2021-01-06] MEDS ORDERED: Cipro 250 MG TAB PO SCH (21:00)
[2021-01-07 04:27] LABS: #Eosinphils 0.1 thou/uL (0.0-0.7); #Lymphocytes 1.3 thou/uL (1.20-3.40); #Monocytes 1.1 thou/uL (0.11-0.59); #Neutrophils 5.1 thou/uL (1.40-6.50); %Basophils 0.1 % (0.0-1.0); %Eosinophils 1.3 % (0.0-10.0); %Lymphocytes 17.5 % (21.0-51.0); %Monocytes 14.1 % (0.0-10.0); Mean Corpuscular Volume 96.9 fL (78.0-98.0); Mean Platelet Volume 7.3 fL (7.4-10.4); Platelet Count 327 thou/uL (130-400); RBC Distribution Width 11.3 % (11.5-14.5); White Blood Cell (WBC) Count 7.6 thou/uL (4.8-10.8)
[2021-01-07 04:50] LABS: ALT (SGPT) 18 U/L (8-55); AST (SGOT) 15 U/L (5-34); Albumin 2.8 g/dL (3.5-5.0); Alkaline Phosphatase 55 U/L (40-110); Anion Gap 11 mmol/L (10-20); BUN (Urea Nitrogen) 8 mg/dL (8.9-20.6); Bilirubin, Total 0.6 mg/dL (0.2-1.2); Calc. Creatinine Clearance 115 mL/min (70-130); Calcium 8.3 mg/dL (7.8-10.44); Carbon Dioxide 30 mmol/L (22-29); Chloride 102 mmol/L (98-107); Globulin 3.8 g/dL (2.4-3.5); Glucose 88 mg/dL (70-105); Potassium 3.4 mmol/L (3.5-5.1); Protein, Total 6.6 g/dL (6.0-8.3); Sodium 140 mmol/L (136-145)
[2021-01-07] MEDS ORDERED: Electrolyte Replacement Protocol FS PRN (05:15)
[2021-01-07] MEDS ORDERED: Potassium Chloride 20 MEQ TAB PO SCH (05:30)
[2021-01-07] MEDS ORDERED: Magnesium 2 GM/50 ML 2 GM in Premix Bag 1 BAG IVPB SCH (06:30)
[2021-01-07] MEDS: Carvedilol 25 MG TAB PO SCH (08:47)
[2021-01-07] MEDS ORDERED: Cefdinir 300 MG CAP PO SCH (09:00)
[2021-01-07 11:10] VITALS: BP 136/61; TEMP 98.6
[2021-01-07] MEDS: Lubiprostone 24 MCG CAP PO SCH (12:45)
[2021-01-07] MEDS ORDERED: Sulfameth/Trimethoprim DS 800-160mg TAB PO SCH (21:00)
== END 2021-01-07 14:38 | disposition home or self-care (01) | DRG 872 ==
LOC: ERS 18:27 → 2NO 22:57 → UNDOADMIN 23:02
PROVIDERS: ADMIT Family Medicine; ATTEND Family Medicine
DX: A41.9 Sepsis, unspecified organism (principal); N39.0 Urinary tract infection, site not specified; N20.0 Calculus of kidney; I10 Essential (primary) hypertension; E87.6 Hypokalemia; N31.9 Neuromuscular dysfunction of bladder, unspecified; Z20.822 Contact with and (suspected) exposure to COVID-19; Q05.9 Spina bifida, unspecified; Z88.1 Allergy status to other antibiotic agents; Z99.3 Dependence on wheelchair
CPT/HCPCS: 36415; 51701; 70450; 74177; 75809; 80048; 80053; 81003; 81015; 83605; 83735; 84145; 85025; 87040; 87077; 87086; 87186; 87635; 93005; 96365; 96375; J0696; J1885; J3475; J3480; J3490; J7120; Q9967; U0003; U0005

== ENCOUNTER 2021-01-25 11:20 | Outpatient (CLI) | payer OTHER ==
[2021-01-25 12:52] LABS: Hemoglobin 13.2 g/dL (13.5-17.5); Mean Corpuscular HGB CONC 32.5 g/dL (32.0-36.0); Mean Corpuscular Hemoglobin 31.8 pg (27.0-33.0); Mean Corpuscular Volume 97.8 fl (81.2-95.1); Mean Platelet Volume 11.4 fl (7.4-10.4); Platelet Count 226 10x3/uL (150-450); RBC Distribution Width 12.8 % (11.5-14.5); Red Blood Cell (RBC) Count 4.15 10x6/uL (4.32-5.72)
[2021-01-25 15:12] LABS: Anion Gap 20 mmol/L (10-20); BUN (Urea Nitrogen) 11 mg/dL (8.9-20.6); Calc. Creatinine Clearance 0 mL/min (70-130); Carbon Dioxide 26 mmol/L (22-29); Chloride 98 mmol/L (98-107); Glucose 97 mg/dL (70-105); Potassium 3.4 mmol/L (3.5-5.1); Sodium 141 mmol/L (136-145)
[2021-01-26 01:48] LABS: SARS-CoV-2 PCR by NAA Not Detected (NotDetected)
== END 2021-01-25 11:21 | disposition home or self-care (01) ==
LOC: LABBT 11:20
PROVIDERS: ATTEND Urology
DX: Z01.818 Encounter for other preprocedural examination (principal); Q05.7 Lumbar spina bifida without hydrocephalus; N20.0 Calculus of kidney; N30.20 Other chronic cystitis without hematuria; N31.9 Neuromuscular dysfunction of bladder, unspecified; Z20.822 Contact with and (suspected) exposure to COVID-19
CPT/HCPCS: 80048; 85027; 87635; U0003; U0005

== ENCOUNTER 2021-01-30 06:05 | Inpatient (IN) | payer OTHER ==
[2021-01-30] MEDS ORDERED: Fentanyl 100 MCG/2 ML VIAL ONE (06:35)
[2021-01-30] MEDS ORDERED: Iothalamate Meglumine 60% 50 ML VIAL FS ONE (06:36)
[2021-01-30] MEDS ORDERED: Sodium Chloride 0.9% 100 ML ONE (06:51)
[2021-01-30] MEDS ORDERED: cefTRIAXone\\ROCEPHIN 1 GM VIAL ONE (06:51)
[2021-01-30] MEDS ORDERED: Lidocaine 1% PF 5 ML VIAL ONE (07:50)
[2021-01-30] MEDS ORDERED: ePHEDrine Sulfate 50 MG/10 ML VIAL ONE (07:50)
[2021-01-30] MEDS ORDERED: Glycopyrrolate 0.2 MG/ML 5 ML SYRINGE ONE (07:50)
[2021-01-30] MEDS ORDERED: Ondansetron PF 4 MG/2 ML Vial ONE (07:50)
[2021-01-30] MEDS ORDERED: Dexamethasone 20 MG/5 ML VIAL ONE (07:50)
[2021-01-30] MEDS ORDERED: Rocuronium Bromide 10 MG/ML (10ML VIAL) ONE (07:50)
[2021-01-30] MEDS ORDERED: PROPOFOL 200 MG/20 ML VIAL ONE (07:50)
[2021-01-30] MEDS ORDERED: PHENYLEPHRINE-NS 100 MCG/ML 10 ML SYRINGE ONE ×2 (07:50→08:35)
[2021-01-30] MEDS ORDERED: Oxybutynin 5 MG TAB ONE (09:28)
[2021-01-30] MEDS ORDERED: Ketorolac Tromethamine 30 MG/ML VIAL ONE (09:28)
[2021-01-30] MEDS ORDERED: Iopamidol-370 76% 500 ML 1 ML ONE (09:46)
[2021-01-30] MEDS ORDERED: Ondansetron PF 4 MG/2 ML Vial IVP PRN (15:29)
[2021-01-30] MEDS ORDERED: Acetaminophen 325 MG TAB PO PRN (15:29)
[2021-01-30] MEDS ORDERED: Ondansetron ODT 4 MG TAB PO PRN (15:29)
[2021-01-30 16:48] LABS: Hemoglobin 10.1 g/dL (14.0-18.0); Mean Corpuscular HGB CONC 32.8 g/dL (32.0-36.0); Mean Corpuscular Hemoglobin 32.3 pg (27.0-31.0); Mean Corpuscular Volume 98.5 fL (78.0-98.0); Mean Platelet Volume 8.5 fL (7.4-10.4); Platelet Count 138 thou/uL (130-400); RBC Distribution Width 12.8 % (11.5-14.5); Red Blood Cell (RBC) Count 3.11 mill/uL (4.70-6.10); White Blood Cell (WBC) Count 8.8 thou/uL (4.8-10.8)
[2021-01-30] MEDS ORDERED: Oxybutynin 5 MG TAB PO PRN (16:57)
[2021-01-30 17:01] LABS: ALT (SGPT) 10 U/L (8-55); AST (SGOT) 19 U/L (5-34); Albumin 2.6 g/dL (3.5-5.0); Alkaline Phosphatase 48 U/L (40-110); Anion Gap 10 mmol/L (10-20); BUN (Urea Nitrogen) 16 mg/dL (8.9-20.6); Bilirubin, Total 0.6 mg/dL (0.2-1.2); Calc. Creatinine Clearance 58 mL/min (70-130); Calcium 8.2 mg/dL (7.8-10.44); Carbon Dioxide 29 mmol/L (22-29); Chloride 107 mmol/L (98-107); Globulin 3.3 g/dL (2.4-3.5); Glucose 107 mg/dL (70-105); Potassium 3.6 mmol/L (3.5-5.1); Protein, Total 5.9 g/dL (6.0-8.3); Sodium 142 mmol/L (136-145)
[2021-01-30 17:06] LABS: Troponin I Less than 0.010 ng/mL (< 0.028)
[2021-01-30] MEDS ORDERED: Furosemide 40 MG/4 ML VIAL ONE (17:11)
[2021-01-30 17:16] LABS: Band 15 % (5-11); Lymphocytes 4 % (21-51); MDiff Complete? YES; Monocytes 3 % (0-10); Myelocyte 3 % (0-0); Neutrophil 75 % (42-75); Platelet Morphology Comment Appears Adequate; RBC Morphology Normal
[2021-01-30 17:28] LABS: Actual Bicarbonate (HCO3a) 28.3 mEq/L (22-28); Calcium, Ionized (arterial) 1.17 mmol/L (1.12-1.30); Carboxyhemoglobin (COHb) 0.9 gm% (0.0-3.0); Hemoglobin (Hb) 11.4 g/dL (14.0-18.0); O2 Tension (PaO2), arterial 62.6 mmHg (80.0-100.0); Potassium - ABG Lab 3.69 mmol/L (3.70-5.30)
[2021-01-30 17:35] LABS: Puncture Site RRA
[2021-01-30 23:55] VITALS: BMI 14.1
[2021-01-31] MEDS ORDERED: Melatonin 3 MG TAB PO SCH (02:15)
[2021-01-31] MEDS: Cefepime 2 GM in Sodium Chloride 0.9% 100 ML IVPB SCH ×2 (03:40→15:46)
[2021-01-31 08:21] LABS: Hemoglobin 10.4 g/dL (14.0-18.0); Mean Corpuscular HGB CONC 31.5 g/dL (32.0-36.0); Mean Corpuscular Hemoglobin 31.3 pg (27.0-31.0); Mean Corpuscular Volume 99.3 fL (78.0-98.0); Mean Platelet Volume 8.7 fL (7.4-10.4); Platelet Count 191 thou/uL (130-400); RBC Distribution Width 12.8 % (11.5-14.5); Red Blood Cell (RBC) Count 3.34 mill/uL (4.70-6.10); White Blood Cell (WBC) Count 19.4 thou/uL (4.8-10.8)
[2021-01-31 08:39] LABS: ALT (SGPT) 10 U/L (8-55); AST (SGOT) 20 U/L (5-34); Alkaline Phosphatase 57 U/L (40-110); Anion Gap 14 mmol/L (10-20); BUN (Urea Nitrogen) 18 mg/dL (8.9-20.6); Bilirubin, Total 0.5 mg/dL (0.2-1.2); Calc. Creatinine Clearance 54 mL/min (70-130); Carbon Dioxide 29 mmol/L (22-29); Chloride 104 mmol/L (98-107); Globulin 3.7 g/dL (2.4-3.5); Glucose 75 mg/dL (70-105); Potassium 4.3 mmol/L (3.5-5.1); Protein, Total 6.7 g/dL (6.0-8.3); Sodium 143 mmol/L (136-145)
[2021-01-31 08:45] LABS: Band 29 % (5-11); Hypochromia SLIGHT = 6-15 cells (100X) (0-5/hpf); Lymphocytes 6 % (21-51); MDiff Complete? YES; Metamyelocyte 1 % (0-0); Monocytes 1 % (0-10); Neutrophil 63 % (42-75); Platelet Morphology Comment Appears Adequate; Polychromasia SLIGHT = 2-3 cells (100X) (0-2/hpf)
[2021-01-31] MEDS ORDERED: Enoxaparin Sodium 40 MG/0.4 ML SYRINGE SC SCH (09:00)
[2021-01-31] MEDS ORDERED: Cefepime 2 GM in Sodium Chloride 0.9% 100 ML IVPB SCH (09:00)
[2021-01-31] MEDS ORDERED: cefTRIAXone\\ROCEPHIN 1 GM in Sodium Chloride 0.9% 100 ML IVPB SCH (10:00)
[2021-01-31] MEDS ORDERED: Melatonin 3 MG TAB PO PRN (16:56)
[2021-01-31] MEDS ORDERED: hydrOXYzine 10 MG TAB PO SCH (21:30)
[2021-02-01] MEDS: Cefepime 2 GM in Sodium Chloride 0.9% 100 ML IVPB SCH ×2 (03:43→17:28)
[2021-02-01 04:17] LABS: Hemoglobin 11.1 g/dL (14.0-18.0); Mean Corpuscular Hemoglobin 30.7 pg (27.0-31.0); Mean Corpuscular Volume 99.1 fL (78.0-98.0); Platelet Count 213 thou/uL (130-400); RBC Distribution Width 12.9 % (11.5-14.5); White Blood Cell (WBC) Count 21.4 thou/uL (4.8-10.8)
[2021-02-01 04:34] LABS: Band 4 % (5-11); MDiff Complete? YES; Metamyelocyte 4 % (0-0); Monocytes 2 % (0-10); Neutrophil 90 % (42-75); Platelet Morphology Comment Appears Adequate
[2021-02-01] MEDS: Clindamycin 150 MG CAP PO SCH ×2 (15:29→21:06)
[2021-02-02] MEDS: Cefepime 2 GM in Sodium Chloride 0.9% 100 ML IVPB SCH ×2 (03:50→14:57)
[2021-02-02] MEDS: Clindamycin 150 MG CAP PO SCH ×3 (05:11→20:54)
[2021-02-02 09:07] LABS: Band 22 % (5-11); Hemoglobin 11.6 g/dL (14.0-18.0); Hypochromia SLIGHT = 6-15 cells (100X) (0-5/hpf); Lymphocytes 6 % (21-51); MDiff Complete? YES; Mean Corpuscular HGB CONC 30.2 g/dL (32.0-36.0); Mean Corpuscular Hemoglobin 30.1 pg (27.0-31.0); Mean Corpuscular Volume 99.7 fL (78.0-98.0); Mean Platelet Volume 8.7 fL (7.4-10.4); Metamyelocyte 2 % (0-0); Monocytes 9 % (0-10); Myelocyte 1 % (0-0); Neutrophil 57 % (42-75); Platelet Count 276 thou/uL (130-400); Platelet Morphology Comment Appears Adequate; RBC Distribution Width 12.9 % (11.5-14.5); Reactive Lymphocytes 3 % (0-10); Red Blood Cell (RBC) Count 3.85 mill/uL (4.70-6.10); White Blood Cell (WBC) Count 20.5 thou/uL (4.8-10.8)
[2021-02-02] MEDS: Cefdinir 300 MG CAP PO SCH (20:51)
[2021-02-03] MEDS: Clindamycin 150 MG CAP PO SCH ×3 (05:02→21:43)
[2021-02-03 06:43] LABS: Hemoglobin 10.3 g/dL (14.0-18.0); Mean Corpuscular HGB CONC 29.7 g/dL (32.0-36.0); Mean Corpuscular Hemoglobin 29.9 pg (27.0-31.0); Mean Platelet Volume 10.3 fL (7.4-10.4); Platelet Count 254 thou/uL (130-400); RBC Distribution Width 13.1 % (11.5-14.5); Red Blood Cell (RBC) Count 3.46 mill/uL (4.70-6.10)
[2021-02-03 07:18] LABS: Band 7 % (5-11); Eosinophils 1 % (0-10); Hypochromia SLIGHT = 6-15 cells (100X) (0-5/hpf); Lymphocytes 4 % (21-51); MDiff Complete? YES; Monocytes 2 % (0-10); Neutrophil 85 % (42-75); Nucleated RBC 1 % (0); Platelet Morphology Comment Appears Adequate; Reactive Lymphocytes 1 % (0-10)
[2021-02-03] MEDS: Cefdinir 300 MG CAP PO SCH ×2 (09:15→20:53)
[2021-02-04 05:10] LABS: Hemoglobin 10.4 g/dL (14.0-18.0); Mean Corpuscular HGB CONC 30.3 g/dL (32.0-36.0); Mean Corpuscular Hemoglobin 30.3 pg (27.0-31.0); Mean Corpuscular Volume 99.9 fL (78.0-98.0); Mean Platelet Volume 9.1 fL (7.4-10.4); Platelet Count 262 thou/uL (130-400); Red Blood Cell (RBC) Count 3.43 mill/uL (4.70-6.10); White Blood Cell (WBC) Count 12.2 thou/uL (4.8-10.8)
[2021-02-04] MEDS: Clindamycin 150 MG CAP PO SCH ×3 (05:32→21:27)
[2021-02-04 06:20] LABS: Band 9 % (5-11); Eosinophils 2 % (0-10); Lymphocytes 7 % (21-51); MDiff Complete? YES; Monocytes 10 % (0-10); Neutrophil 72 % (42-75)
[2021-02-04] MEDS: Cefdinir 300 MG CAP PO SCH ×2 (09:06→20:26)
[2021-02-05] MEDS: Clindamycin 150 MG CAP PO SCH ×3 (06:01→20:39)
[2021-02-05 08:20] LABS: Hemoglobin 10.8 g/dL (14.0-18.0); Mean Corpuscular HGB CONC 30.9 g/dL (32.0-36.0); Mean Corpuscular Hemoglobin 30.8 pg (27.0-31.0); Mean Corpuscular Volume 99.4 fL (78.0-98.0); Platelet Count 304 thou/uL (130-400); RBC Distribution Width 13.7 % (11.5-14.5); White Blood Cell (WBC) Count 8.6 thou/uL (4.8-10.8)
[2021-02-05 08:58] LABS: Band 2 % (5-11); Lymphocytes 19 % (21-51); MDiff Complete? YES; Monocytes 4 % (0-10); Neutrophil 75 % (42-75); Platelet Morphology Comment Appears Adequate; Polychromasia SLIGHT = 2-3 cells (100X) (0-2/hpf)
[2021-02-05] MEDS: Cefdinir 300 MG CAP PO SCH ×2 (09:20→20:39)
[2021-02-06] MEDS: Clindamycin 150 MG CAP PO SCH ×3 (05:50→22:00)
[2021-02-06] MEDS: Cefdinir 300 MG CAP PO SCH ×2 (09:22→22:00)
[2021-02-07] MEDS: Clindamycin 150 MG CAP PO SCH (05:11)
[2021-02-07 15:32] VITALS: BP 138/75; TEMP 98.9
== END 2021-02-07 17:05 | disposition home or self-care (01) | DRG 853 ==
LOC: SDC 06:05 → OBSVTOIN 15:06 → INTOOBSV 15:06 → 2NO 15:06 → IMCU/EMU 18:35 → OBSVTOIN 01-31 09:19 → 2NO 01-31 20:32
PROVIDERS: ADMIT Urology; ATTEND Urology
PROC: 0T7B8DZ Dilation of Bladder with Intraluminal Device, Via Natural or Artificial Opening Endoscopic (ICD-10-PCS; principal; 2021-01-30)
PROC: 0TC48ZZ Extirpation of Matter from Left Kidney Pelvis, Via Natural or Artificial Opening Endoscopic (ICD-10-PCS; 2021-01-30)
PROC: BT1FZZZ Fluoroscopy of Left Kidney, Ureter and Bladder (ICD-10-PCS; 2021-01-30)
DX: A41.9 Sepsis, unspecified organism (principal); J69.0 Pneumonitis due to inhalation of food and vomit; J96.01 Acute respiratory failure with hypoxia; G82.20 Paraplegia, unspecified; N20.0 Calculus of kidney; Z20.822 Contact with and (suspected) exposure to COVID-19; N31.9 Neuromuscular dysfunction of bladder, unspecified; N30.20 Other chronic cystitis without hematuria; E87.70 Fluid overload, unspecified; K66.8 Other specified disorders of peritoneum; F41.9 Anxiety disorder, unspecified; K58.9 Irritable bowel syndrome, unspecified; Z88.8 Allergy status to other drugs, medicaments and biological substances; Q05.9 Spina bifida, unspecified; Z99.3 Dependence on wheelchair; Z79.899 Other long term (current) drug therapy
CPT/HCPCS: 36415; 36600; 71045; 71275; 74176; 74420; 80053; 82805; 84145; 84484; 85007; 85025; 85027; 87040; 87086; 93005; 93010; 94640; 94660; 96374; 96375; G0378; J0692; J0696; J1100; J1885; J1940; J1956; J2405; J2704; J3010; J3490; J7620; Q9961; Q9967

== ENCOUNTER 2024-03-31 14:12 | Outpatient (CLI) | payer OTHER | END 2024-03-31 14:13 | disposition home or self-care (01) | LOC: ULT 14:12 | PROVIDERS: ATTEND Urology | DX: R33.9 Retention of urine, unspecified (principal) | CPT/HCPCS: 76770 ==